=== PATIENT | male | born 1960 | race Caucasian/White ===

== ENCOUNTER 2019-05-01 15:04 | Inpatient (IN) | payer OTHER ==
[~2019-05-01] VITALS: Ht 175.3 cm; Wt 106.8 kg
[~2019-05-01 15:04] MED LIST: AMLODIPINE BESYL5 MG; INVOKAMET 50-11 EACH; MECLIZINE HCL12.5 MG PO; METOPROLOL SUC200 MG; RAMIPRIL10 MG; SIMVASTATIN80 MG; ZOFRAN4 MG SL
[2019-05-01] MEDS ORDERED: KETOROLAC TROMETHAMINE 30 MG/ML VIAL IV STA (15:17)
[2019-05-01] MEDS ORDERED: METHYLPREDNISOLONE SOD SUCC 125 MG/2ML VIAL IV STA (15:17)
[2019-05-01] MEDS ORDERED: SODIUM CHLORIDE 0.9% 1000ML 1,000 ML IV STA ×2 (15:17→16:32)
[2019-05-01] MEDS ORDERED: IPRATROPIUM BROMIDE 0.02% 2.5 ML NEB NEB STA (15:17)
[2019-05-01] MEDS ORDERED: ALBUTEROL SULF 0.083% NEB SOLN 3 ML NEB NEB STA (15:17)
--- NOTE | 2019-05-01 15:27 | NUR ---
notified rt of pt nebs.
[2019-05-01] MEDS ORDERED: ACETAMINOPHEN/CODEINE ELIX 120-12 MG/5 ML UDC PO ONE (15:30)
[2019-05-01] MEDS ORDERED: ACETAMINOPHEN/CODEINE ELIX 120-12 MG/5 ML UDC ONE (15:38)
[2019-05-01] MEDS ORDERED: MAGNESIUM SULFATE 2GM/50ML 50 ML IV ONE (15:45)
[2019-05-01] MEDS ORDERED: CEFTRIAXONE SOD 1 GM/NS 50 ML 50 ML IV ONE (15:45)
[2019-05-01] MEDS ORDERED: ONDANSETRON HCL INJ 2MG/ML 2ML 2 MG/ML VIAL ONE (15:50)
[2019-05-01 15:54] LABS: BASOPHILS % 0.2 % (0.0-1.0); HEMATOCRIT 43.9 % (38.2-49.6); HEMOGLOBIN 14.7 g/dL (14.0-18.0); LYMPHOCYTES # (AUTO) 0.5 (1.0-3.2); LYMPHOCYTES % 7.5 % (18.0-39.1); MEAN CORPUSCULAR HEMOGLOBIN 29.5 pg (28-32); MEAN CORPUSCULAR HGB CONC 33.5 g/dL (31-35); MEAN CORPUSCULAR VOLUME 88.2 fL (81-99); MONOCYTES # (AUTO) 0.2 (0.2-0.8); MONOCYTES % 3.6 % (4.4-11.3); NEUTROPHILS # (AUTO) 5.3 (2.1-6.9); NEUTROPHILS % 87.9 % (38.7-80.0); PLATELET COUNT 194 x10e3/uL (140-360); RED BLOOD COUNT 4.98 x10e6/uL (4.3-5.7); RED CELL DISTRIBUTION WIDTH 13.4 % (11.7-14.4)
[2019-05-01] MEDS ORDERED: ACETAMINOPHEN/CODEINE 300MG - 30MG TAB PO NR (16:00)
[2019-05-01] MEDS ORDERED: AZITHROMYCIN 500MG/NS 250 ML 250 ML IV ONE (16:00)
[2019-05-01 16:12] LABS: ALBUMIN/GLOBULIN RATIO 0.7 (0.8-2.0); ANION GAP 18.3 mmol/L (8-16); CALCIUM 9.3 mg/dL (8.4-10.2); CREATININE, SERUM 1.29 mg/dL (0.72-1.25); POTASSIUM 4.3 mmol/L (3.5-5.1)
--- NOTE | 2019-05-01 17:08 | Diagnostic Imaging Report ---
EXAMINATION: CHEST 2 VIEWS INDICATION: Fever COMPARISON: Chest radiograph of 04/28/2019 FINDINGS: LINES/TUBES:None LUNGS:The lung volumes are low. Left lung base consolidation silhouettes the left hemidiaphragm and left heart border. PLEURA:No pleural effusion or pneumothorax. MEDIASTINUM:The cardiomediastinal silhouette appears normal in size and shape. BONES/SOFT TISSUES:No acute osseous injury. Sternotomy wires intact. ABDOMEN:No free air under the diaphragm. IMPRESSION: Left lower lobe and lingular pneumonia. RECOMMENDATIONS: Follow-up PA and lateral chest radiographs in 6-8 weeks following treatment to assess for resolution. Signed by: Oj Bolton MD on 05/01/2019 5:05 PM
[2019-05-01] MEDS ORDERED: SODIUM CHLORIDE FLUSH 10 ML SYR INJ PRN (18:15)
[2019-05-01] MEDS ORDERED: CEFTRIAXONE SOD 1 GRAM/0.9% SOD CHL 50ML BAG IV SCH (18:15)
[2019-05-01] MEDS ORDERED: AZITHROMYCIN 500MG/SOD CHL 0.9% 250ML BAG IV SCH (18:15)
[2019-05-01] MEDS: OSELTAMIVIR PHOSPHATE 75 MG CAP PO SCH (19:10)
[2019-05-01] MEDS: ALBUTEROL SULF 0.083% NEB SOLN 3 ML NEB NEB SCH (20:15)
[2019-05-02] VITALS (14 sets, daily range): BP systolic 78–167; BP diastolic 50–92
[2019-05-02] MEDS: ALBUTEROL SULF 0.083% NEB SOLN 3 ML NEB NEB SCH ×7 (00:17→23:00)
--- NOTE | 2019-05-02 02:45 | NUR ---
pt c increased sob. o2 sat 91-92% on 50% venti mask. resp rate 26. paged. abg performed per orders.
[2019-05-02 02:58] LABS: ABG PH 7.37 (7.31-7.41)
[2019-05-02 02:59] LABS: ABG HCO3 17 mmol/L (23-28); ABG PCO2 29 mmHg (41-51); ABG PO2 68 mmHg (80-105)
[2019-05-02] MEDS ORDERED: ACETAMINOPHEN 325 MG TAB PO PRN (03:45)
[2019-05-02] MEDS ORDERED: VANCOMYCIN 1GM/NS 250 ML 250 ML IV ONE (03:45)
[2019-05-02] MEDS ORDERED: ALBUTEROL SULF 0.083% NEB SOLN 3 ML NEB NEB PRN (03:45)
[2019-05-02] MEDS ORDERED: ACETAMINOPHEN 325 MG TAB ONE (03:52)
--- NOTE | 2019-05-02 04:32 | NUR ---
dr michelle called c result of abg. new orders rc'd. rt called and informed of orders.
[2019-05-02 05:28] LABS: BASOPHILS % 0.2 % (0.0-1.0); HEMATOCRIT 36.1 % (38.2-49.6); HEMOGLOBIN 12.2 g/dL (14.0-18.0); LYMPHOCYTES # (AUTO) 0.5 (1.0-3.2); LYMPHOCYTES % 12.5 % (18.0-39.1); MEAN CORPUSCULAR HEMOGLOBIN 29.6 pg (28-32); MEAN CORPUSCULAR HGB CONC 33.8 g/dL (31-35); MEAN CORPUSCULAR VOLUME 87.6 fL (81-99); MONOCYTES # (AUTO) 0.2 (0.2-0.8); MONOCYTES % 5.9 % (4.4-11.3); NEUTROPHILS # (AUTO) 3.3 (2.1-6.9); NEUTROPHILS % 80.7 % (38.7-80.0); PLATELET COUNT 187 x10e3/uL (140-360); RED BLOOD COUNT 4.12 x10e6/uL (4.3-5.7); RED CELL DISTRIBUTION WIDTH 13.4 % (11.7-14.4)
[2019-05-02 05:55] LABS: ALANINE AMINOTRANSFERASE 36 IU/L (0-55); ALBUMIN 2.5 g/dL (3.5-5.0); ALBUMIN/GLOBULIN RATIO 0.7 (0.8-2.0); ALKALINE PHOSPHATASE 41 IU/L (40-150); ANION GAP 16.7 mmol/L (8-16); BLOOD UREA NITROGEN 21 mg/dL (7-26); BUN/CREATININE RATIO 20 (6-25); CALCIUM 8.4 mg/dL (8.4-10.2); CARBON DIOXIDE 16 mmol/L (22-29); CHLORIDE 107 mmol/L (98-107); CREATINE KINASE 137 IU/L (30-200); CREATININE, SERUM 1.03 mg/dL (0.72-1.25); EST GLOMERULAR FILTRATION RATE > 60 ML/MIN (60-); GLUCOSE 215 mg/dL (74-118); POTASSIUM 3.7 mmol/L (3.5-5.1); SODIUM 136 mmol/L (136-145)
--- NOTE | 2019-05-02 06:41 | Diagnostic Imaging Report ---
EXAMINATION: CHEST SINGLE (PORTABLE) COMPARISON: Chest x-ray 05/01/2019 INDICATION: ^sob ^[id number] ^[id number] DISCUSSION: Frontal view of the chest obtained at 0520 hours. HEART AND MEDIASTINUM: Stable cardiomegaly and cardiac bypass changes. LINES: None. LUNGS: Lung volumes remain diminished. Worsening infiltrates throughout the left lung. Right basilar infiltrates are similar. PLEURA: No large effusions. No pneumothorax BONES AND SOFT TISSUES: Stable. IMPRESSION: Worsening infiltrates in the left lung. The remainder of the chest is stable. Signed by: Dr. Max Eisenberg MD on 05/02/2019 6:38 AM
--- NOTE | 2019-05-02 06:58 | NUR ---
spoke to dr michelle regarding chest xray and updated on response to vapotherm. no new orders at this time.
--- NOTE | 2019-05-02 07:50 | NUR ---
Patient to room 190 via stretcher. O2 therapy via vapotherm. Patient with severe exertional dyspnea, even when speaking. Patient comfortable in bed and rest promoted.
[2019-05-02] MEDS ORDERED: CEFTRIAXONE SOD 1 GM/NS 50 ML 50 ML IV SCH (09:00)
[2019-05-02] MEDS: OSELTAMIVIR PHOSPHATE 75 MG CAP PO SCH ×3 (09:08→17:00)
[2019-05-02] MEDS ORDERED: MECLIZINE HCL 12.5 MG TAB PO PRN (09:30)
[2019-05-02] MEDS ORDERED: LISINOPRIL 10 MG TAB PO SCH (09:30)
[2019-05-02] MEDS: METOPROLOL SUCCINATE 50 MG TAB XL PO SCH ×3 (10:28→17:00)
[2019-05-02] MEDS: VANCOMYCIN 1GM/NS 250 ML 250 ML IV SCH ×2 (10:32→21:55)
--- NOTE | 2019-05-02 12:34 | Consultation ---
DATE OF CONSULTATION: 05/02/2019 Pulmonary Critical Care Consultation REASON FOR CONSULT: Shortness of breath, pneumonia. HISTORY OF PRESENT ILLNESS: Mr. Vargas is a 59-year-old male, who presented to the emergency room with worsening shortness of breath. He was on a cruise ship and on the cruise ship started having cough, wheezing, shortness of breath, was diagnosed with influenza and was treated. He came back and he presented to the emergency room on the with shortness of breath, however, he was sent home. He came back last night with worsening shortness of breath, wheezing, and coughing. Shortness of breath was worse on exertion and then it started having at rest as well. It was associated with cough and palpitation. The shortness of breath was not relieved by anything except it was somewhat better when he received breathing treatments in the emergency room. He denies any complaints of chest pain, nausea, or vomiting. He has history of premature coronary artery disease and underwent CABG when he was in his 30s. REVIEW OF SYSTEMS: GENERAL: Fevers and chills. HEAD: Denies any head trauma. ENT: Denies any earache. CVS: Denies any chest pain. RESPIRATORY: Shortness of breath. GI: Denies any nausea or vomiting. The rest of the review of systems are negative except as in HPI. PAST MEDICAL HISTORY: Coronary artery disease and diabetes. FAMILY AND SOCIAL HISTORY: He does not smoke. Does not drink. PHYSICAL EXAMINATION: VITAL SIGNS: Temperature 97.5, pulse of 84, blood pressure 150/63, respiratory rate is around 28 to 30, and O2 saturation is 92% on 90 L high-flow oxygen. HEENT: Head is atraumatic and normocephalic. CHEST: Markedly reduced air entry on the left base and left lower half of the lung with bronchial breath sounds. HEART: S1 and S2 audible. ABDOMEN: Soft and nontender. EXTREMITIES: No pedal edema. NEUROLOGIC: Awake and alert. LABORATORY DATA: White count of 4000, hemoglobin 12.12, and platelets 187. Chemistry; sodium 135, potassium 3.7, chloride 107, BUN 21, and creatinine 1.02. Lactic acid 2.8, went down to 1.6. He received IV hydration. Blood gas; pH of 7.37, pCO2 of 29, and pO2 of 68. This was done last night on 50% Ventimask. Chest x-ray, I have reviewed the images, showing dense left lower lobe infiltrate. ASSESSMENT/PLAN: Mr. Vargas is a 59-year-old male with severe sepsis and pneumonia. Current problem: 1. Severe sepsis secondary to community-acquired pneumonia, possibility of Legionella. The patient was on cruise ship or Staph pneumonia, as the patient had influenza. 2. History of coronary artery disease. 3. Hypertension. PLAN: 1. Agree with the Rocephin and azithromycin. I will add vancomycin for possibility of Staph pneumonia. 2. Nebulizer treatment as ordered. 3. Continue antihypertensive medications. 4. Oxygen as needed to keep the O2 saturation more than or equal to 92%. I will keep the patient on high-flow oxygen. Discussion was done with the patient to hopefully not requiring intubation, however, if he has more shortness of breath and may require intubation. Sputum Gram stain and culture. We will follow blood cultures. Case discussed with Dr. Wong. Critical care time spent 50 minutes. Thank you for this consult. MD KARLY Mac/JORGE /[id number]
--- NOTE | 2019-05-02 12:38 | Diagnostic Imaging Report ---
Chest ultrasound. History: Abnormal chest x-ray. Comparison: Chest x-ray from earlier today 05/01/2019. Discussion: Transverse and longitudinal sonographic imaging of the bilateral posterior chest was performed. No pleural effusions are identified. IMPRESSION: No evidence of pleural effusion. Signed by: Bib Zhou on 05/02/2019 12:35 PM
[2019-05-02] MEDS ORDERED: ONDANSETRON HCL INJ 2MG/ML 2ML 2 MG/ML VIAL ONE (13:45)
[2019-05-02] MEDS ORDERED: ONDANSETRON HCL INJ 2MG/ML 2ML 2 MG/ML VIAL IV PRN (13:45)
[2019-05-02] MEDS ORDERED: AZITHROMYCIN 500MG/NS 250 ML 250 ML IV SCH (16:00)
--- NOTE | 2019-05-02 16:10 | History and Physical ---
Mr. Vargas is a pleasant 59-year-old diabetic, known to me for many years, who was sent from my office today when he presented with cough, fever, and dyspnea. HISTORY OF PRESENT ILLNESS: The patient reports that he was on a cruise ship last week and developed fever and cough, and we finally visited at the [facility] Emergency Room earlier this week. They did labs and told he had influenza, but they thought it was too late for him to began any antiviral medications and told him to go home and to take symptomatic treatments. However, he proceeded to develop worsening fever, cough, and shortness of breath. PAST MEDICAL HISTORY: Significant for coronary artery disease, diagnosed at age 34 with coronary artery bypass graft surgery that same year with complex surgery by Dr. Regan No at [facility] with MATHEWS to the LAD, vein graft to diagonal, vein graft to the posterior descending and a vein jump graft to OM1 and OM2 on May 22, 1994. He was diagnosed with diabetes in 2006, he was 46 years of age and has longstanding hyperlipidemia with low HDL. MEDICATIONS: Recent home medications include aspirin 325 mg daily, multivitamin daily, Invokamet mg twice a day, Zocor 80 mg daily, metoprolol succinate 200 mg once a day, Altace 10 mg daily, and amlodipine 5 mg daily. PERSONAL AND SOCIAL HISTORY: He does not smoke or drink. FAMILY HISTORY: Father with previous cerebrovascular accident. Mother at age 84 after coronary artery bypass graft surgery with congestive failure and renal insufficiency. His sisters also have hyperlipidemia and problems with coronary artery disease. ALLERGIES: HE HAS NO KNOWN ALLERGIES. PHYSICAL EXAMINATION: GENERAL: At this time shows an obese white man, who is dyspneic and uncomfortable. VITAL SIGNS: Height 6 feet tall, weighing 239 pounds, blood pressure 140/90. HEAD, EYES, EARS, NOSE, AND THROAT: Unremarkable. NECK: Thick. THORAX: Healed midline sternotomy. Heart sounds S1 and S2 are equal. No murmurs. LUNGS: Have faint rhonchi. ABDOMEN: Protuberant and nontender. EXTREMITIES: No cyanosis, clubbing, or edema. DIAGNOSTIC DATA: EKG shows sinus rhythm. ASSESSMENT: 1. Probable secondary pneumonia. 2. Influenza A by labs. 3. Type 2 adult onset diabetes. 4. Hypertension. 5. Hyperlipidemia. 6. Coronary artery disease, clinically stable. PLAN: Recommended that he return to the emergency room with supplemental oxygen, broad-spectrum antibiotics, and bronchodilators. MD BECYK Das/JORGE /[id number] cc: Magdiel Thomas MD
[2019-05-02] MEDS: SIMVASTATIN 40 MG TAB PO SCH ×2 (16:12→17:00)
[2019-05-02] MEDS: METFORMIN HCL 500 MG TAB CR PO SCH ×2 (16:12→17:00)
[2019-05-02] MEDS ORDERED: FENTANYL CITRATE INJ 2,000 MCG in SODIUM CHLORIDE 0.9% 250ML 210 ML IV PRN (16:45)
[2019-05-02] MEDS ORDERED: MIDAZOLAM HCL 2 MG/2 ML VIAL IV PRN ×2 (16:45)
[2019-05-02] MEDS ORDERED: MIDAZOLAM HCL 2 MG/2 ML VIAL ONE ×2 (16:51→19:08)
[2019-05-02] MEDS ORDERED: FENTANYL CITRATE/PF 100MCG/2 ML INJ ONE (16:59)
[2019-05-02 17:10] LABS: ABG HCO3 20 mmol/L (23-28); ABG PCO2 31 mmHg (41-51); ABG PH 7.41 (7.31-7.41); ABG PO2 75 mmHg (80-105)
--- NOTE | 2019-05-02 17:41 | Diagnostic Imaging Report ---
Examination: Single AP view of the chest. COMPARISON: None. INDICATION: Status post intubation DISCUSSION: Lines/tubes: Endotracheal tube in satisfactory position 5 cm above the inferior moriah. Sternotomy wires. Lungs: Bilateral airspace consolidations. Pleura: All Heart and mediastinum: Heart enlarged. Bones and soft tissues: No acute bony abnormalities. IMPRESSION: Endotracheal tube in satisfactory position. Increased bilateral airspace consolidations. Signed by: Dr. Dyllan Bunch M.D. on 05/02/2019 5:38 PM
--- NOTE | 2019-05-02 17:59 | Diagnostic Imaging Report ---
Central line placement, 05/02/2019. History: Pneumonia, need for IV access. Comparison: None available. Respiratory Physician: Dr. Zhou. Medication: 5 cc of 1% lidocaine without epinephrine. Conscious sedation: None. EBL: < 2 cc. Specimen: None. Technique: After informed consent and timeout procedure, the access site was prepped and draped with the standard maximal sterile barrier technique. Ultrasound images demonstrated vessel patency. Images were documented within PACS. The skin was anesthetized with lidocaine. The right internal jugular vein was accessed using a micropuncture set with ultrasound guidance. A 0.035-in. wire was advanced through the micropuncture sheath into the vein. The tract was dilated. A 7 Luxembourger 16 cm triple-lumen central line was advanced over the wire into the vessel. The catheter was secured with suture. Dressing was applied. The patient tolerated the procedure well without evidence of complication. Postprocedure chest x-ray was ordered. IMPRESSION: Successful central line placement with ultrasound guidance. Catheter is ready for immediate use. Signed by: Bib Zhou on 05/02/2019 5:56 PM
[2019-05-02] MEDS: PROPOFOL IV EMULSION 10MG/ML 100 ML IV SCH ×2 (18:05→21:56)
--- NOTE | 2019-05-02 18:08 | Diagnostic Imaging Report ---
Examination: Single AP view of the chest. COMPARISON: 05/02/2019 INDICATION: Status post intubation DISCUSSION: Lines/tubes: Right IJ catheter with the tip overlying the cavoatrial junction. Endotracheal tube in satisfactory position 5 cm above the inferior moriah. Sternotomy wires. Lungs: Bilateral airspace consolidations. Pleura: All Heart and mediastinum: Heart enlarged. Bones and soft tissues: No acute bony abnormalities. Degenerative changes in the thoracic spine. IMPRESSION: Right IJ catheter with the tip overlying the cavoatrial junction Stable bilateral airspace consolidations. Signed by: Dr. Dyllan Bunch M.D. on 05/02/2019 6:05 PM
--- NOTE | 2019-05-02 18:36 | NUR ---
PATIENT WAS INTUBATED ON PRVC 450 PEEP 12 RR 14 FIO2 100% RUNNING A FEVER OF 102 (TAKEN UNDERARM) ABG DRAWN ON LEFT RADIAL HAND DELIVERED THE RESULTS TO DR MCNEAL WHOM WAS AT THE BEDSIDE OF THE PATIENT PH 7.14 PCO2 66 HCO3 22.9 BE -6 SAO2 88%
[2019-05-02 18:40] LABS: ABG PCO2 66 mmHg (41-51); ABG PH 7.15 (7.31-7.41); ABG PO2 71 mmHg (80-105)
[2019-05-02 18:41] LABS: ABG HCO3 23 mmol/L (23-28)
--- NOTE | 2019-05-02 18:45 | NUR ---
Initiated a transfer to [place] [facility] for higher level of care, with pt. possible benefit from ECMO as instructed per Dr. Yoni Thomas, Face sheet and history fax to Transfer center
--- NOTE | 2019-05-02 18:46 | NUR ---
Dr Thomas conferenced with family and explained the plan is to transfer the patient to [facility] via [facility] or critical care ambulance for ECMO. Family states understanding.
--- NOTE | 2019-05-02 19:00 | Diagnostic Imaging Report ---
Examination: Single AP view of the chest. COMPARISON: 05/02/2019 INDICATION: Status post intubation DISCUSSION: Lines/tubes: Right IJ catheter with the tip overlying the cavoatrial junction. Endotracheal tube in satisfactory position 5 cm above the inferior moriah. Sternotomy wires. Lungs: Bilateral airspace consolidations. Pleura: All Heart and mediastinum: Heart enlarged. Bones and soft tissues: No acute bony abnormalities. Degenerative changes in the thoracic spine. IMPRESSION: Stable lines and tubes. Stable bilateral airspace consolidations. Signed by: Dr. Dyllan Bunch M.D. on 05/02/2019 6:57 PM
[2019-05-02] MEDS ORDERED: SUCCINYLCHOLINE CHLORIDE 20 MG/ML 10ML VIAL ONE (19:08)
[2019-05-02] MEDS ORDERED: VECURONIUM BROMIDE FOR INJ 20 MG VIAL ONE (19:08)
[2019-05-02] MEDS ORDERED: ETOMIDATE 2 MG/ML 10 ML INJ IV ONE (19:08)
[2019-05-02] MEDS ORDERED: WATER STERILE 10 ML VIAL ONE (19:08)
--- NOTE | 2019-05-02 20:17 | NUR ---
Spoke with [facility], states waiting on bed availability
[2019-05-02 20:24] LABS: BASOPHILS % 0.2 % (0.0-1.0); HEMATOCRIT 38.4 % (38.2-49.6); HEMOGLOBIN 12.4 g/dL (14.0-18.0); LYMPHOCYTES # (AUTO) 0.5 (1.0-3.2); MEAN CORPUSCULAR HEMOGLOBIN 29.2 pg (28-32); MEAN CORPUSCULAR HGB CONC 32.3 g/dL (31-35); MEAN CORPUSCULAR VOLUME 90.6 fL (81-99); MONOCYTES # (AUTO) 0.5 (0.2-0.8); MONOCYTES % 7.6 % (4.4-11.3); NEUTROPHILS # (AUTO) 5.3 (2.1-6.9); PLATELET COUNT 231 x10e3/uL (140-360); RED BLOOD COUNT 4.24 x10e6/uL (4.3-5.7); RED CELL DISTRIBUTION WIDTH 13.7 % (11.7-14.4)
[2019-05-02 20:27] LABS: CLARITY,URINE SL CLOUDY (CLEAR); COLOR,URINE YELLOW (YELLOW); LEUKOCYTE ESTERASE ,URINE NEGATIVE (NEGATIVE); NITRITE,URINE NEGATIVE (NEGATIVE); PROTEIN,URINE DIPSTICK 2+ (NEGATIVE)
[2019-05-02 20:28] LABS: BILIRUBIN,URINE NEGATIVE (NEGATIVE); KETONES,URINE TRACE (NEGATIVE); URINE UROBILINOGEN 0.2 mg/dL (0.2 - 1)
[2019-05-02 20:37] LABS: INR 1.06; PARTIAL THROMBOPLASTIN TIME 26.7 seconds (23.8-35.5)
[2019-05-02 20:38] LABS: EPITHELIAL CELLS,URINE RARE /LPF; RBC,URINE 0-5 /HPF (0-5)
[2019-05-02 20:45] LABS: ALANINE AMINOTRANSFERASE 42 IU/L (0-55); ALBUMIN 2.3 g/dL (3.5-5.0); ALBUMIN/GLOBULIN RATIO 0.6 (0.8-2.0); ALKALINE PHOSPHATASE 43 IU/L (40-150); ANION GAP 15.4 mmol/L (8-16); BLOOD UREA NITROGEN 19 mg/dL (7-26); BUN/CREATININE RATIO 18 (6-25); CALCIUM 8.3 mg/dL (8.4-10.2); CARBON DIOXIDE 20 mmol/L (22-29); CHLORIDE 109 mmol/L (98-107); CREATININE, SERUM 1.06 mg/dL (0.72-1.25); EST GLOMERULAR FILTRATION RATE > 60 ML/MIN (60-); GLUCOSE 234 mg/dL (74-118); POTASSIUM 4.4 mmol/L (3.5-5.1); SODIUM 140 mmol/L (136-145)
[2019-05-02 21:53] LABS: ABG PCO2 42 mmHg (41-51); ABG PO2 77 mmHg (80-105)
[2019-05-02 21:54] LABS: ABG HCO3 21 mmol/L (23-28)
[2019-05-02] MEDS ORDERED: SODIUM CHLORIDE 0.9% 250ML IRRIG IR SCH (22:00)
--- NOTE | 2019-05-02 22:00 | NUR ---
spoke with transfer center concerning transfer, states they are waiting on bed availability, ask if a bed should become available tonight, states yes one should become available tonight
[2019-05-03] VITALS: BP 103/64
--- NOTE | 2019-05-03 | NUR ---
called transfer center concerning transfer of pt. states waiting on bed to become available, states Dr. Thomas spoke with physician at [facility], and it was decided at this time ECMO would not be needed, but pt. should received a bed sometime tonight for transfer
[2019-05-03 00:04] VITALS: BP 103/64
--- NOTE | 2019-05-03 00:40 | NUR ---
received approval of transfer at 0024 to [facility] second floor Bed 30
[2019-05-03 01:00] VITALS: BP 100/65
--- NOTE | 2019-05-03 01:22 | NUR ---
Called report to Slava ([facility] Unit) @ [facility]
--- NOTE | 2019-05-03 01:30 | NUR ---
[facility] @ [facility]
--- NOTE | 2019-05-03 01:50 | NUR ---
Pt Loaded up on Stretcher and transported to [facility] by [facility]
--- NOTE | 2019-05-05 09:21 | Discharge Summary ---
Mr. Vargas is a pleasant 59-year-old diabetic with known coronary artery disease, who was sent from my office on the , where he presented with complaint of fever and cough and shortness of breath and being told that he had influenza A diagnosed on before the . HOSPITAL COURSE: He was initially admitted to the floor for shortness of breath, cough, and fever with chest x-ray suggesting a secondary bacterial pneumonia. Overnight, the , the patient reported that he felt somewhat better with oxygen and bronchodilators, but by mid day on the , the patient reported that he was getting more short of breath and chest x-ray suggested development of ARDS. He was intubated and eventually required 100% FiO2 for maintenance of borderline oxygenation. It was Dr. Thomas's evaluation that he was developing inadequate ventilation and he was elected to be transferred to [facility] for external corporeal membrane oxygenation. He was transported by [facility] on ventilator. DISCHARGE DIAGNOSES: 1. Acute respiratory distress syndrome. 2. Influenza A. 3. Secondary bacterial pneumonia. 4. Type 2 adult onset diabetes. 5. Coronary artery disease, clinically stable with last ejection fraction being normal. MD BECKY Das/MODL /[id number] cc: Magdiel Thomas MD
== END 2019-05-03 01:51 | disposition other institution (70) | DRG 871 ==
LOC: ER 15:04 → ERHOLD 18:27 → ICU 05-02 07:55
PROVIDERS: ADMIT Internal Medicine Cardiovascular Disease; ATTEND Internal Medicine Cardiovascular Disease
PROC: 02HV33Z Insertion of Infusion Device into Superior Vena Cava, Percutaneous Approach (ICD-10-PCS; principal; 2019-05-02)
PROC: B548ZZA Ultrasonography of Superior Vena Cava, Guidance (ICD-10-PCS; 2019-05-02)
PROC: 5A1935Z Respiratory Ventilation, Less than 24 Consecutive Hours (ICD-10-PCS; 2019-05-02)
PROC: 0BH17EZ Insertion of Endotracheal Airway into Trachea, Via Natural or Artificial Opening (ICD-10-PCS; 2019-05-02)
DX: A41.9 Sepsis, unspecified organism (principal); J15.8 Pneumonia due to other specified bacteria; J11.08 Influenza due to unidentified influenza virus with specified pneumonia; J15.20 Pneumonia due to staphylococcus, unspecified; J80 Acute respiratory distress syndrome; E11.9 Type 2 diabetes mellitus without complications; I10 Essential (primary) hypertension; E78.5 Hyperlipidemia, unspecified; I25.10 Atherosclerotic heart disease of native coronary artery without angina pectoris; R65.20 Severe sepsis without septic shock; R09.02 Hypoxemia; Z95.1 Presence of aortocoronary bypass graft; Z82.3 Family history of stroke; Z82.49 Family history of ischemic heart disease and other diseases of the circulatory system; Z84.1 Family history of disorders of kidney and ureter; E66.9 Obesity, unspecified; Z79.84 Long term (current) use of oral hypoglycemic drugs; Z68.34 Body mass index [BMI] 34.0-34.9, adult
CPT/HCPCS: 36415; 36556; 36600; 71045; 71046; 74470; 76604; 76937; 80053; 81001; 82550; 82553; 82805; 82948; 83605; 83880; 84484; 85025; 85610; 85730; 87040; 87070; 87086; 87205; 93005; 94002; 94640; 99285; C1751; C1769; J0330; J0456; J0696; J1885; J2250; J2405; J2930; J3010; J3370; J3475; J7030; J7050